=== PATIENT | female | born 1940 | race Asian ===

== ENCOUNTER 2016-03-10 16:39 | Outpatient (CLI) | payer OTHER ==
[~2016-03-10 16:39] MED LIST: ALBU90AE13 INH; BUDE1AER5 INH; FOLI1TAB26 PO; OMEGA 31000 MG PO; OYSTER-CAL500 MG PO; PROAIR HFA INH; XOPENEX1.25 MG/3 INH; ZANTAC 75 PO
[2016-03-10 16:56] LABS: PLATELET COUNT 340 K/uL (152-353)
[2016-03-10 17:11] LABS: POTASSIUM 3.9 mmol/L (3.6-5.2)
== END 2016-03-10 20:15 | disposition home or self-care (01) ==
LOC: LABW 16:39
PROVIDERS: Internal Medicine
DX: I12.9 Hypertensive chronic kidney disease with stage 1 through stage 4 chronic kidney disease, or unspecified chronic kidney disease (principal); N18.9 Chronic kidney disease, unspecified
CPT/HCPCS: 36415; 80048; 82040; 83883; 84100; 84550; 85027; 86039

== ENCOUNTER 2016-03-16 16:25 | Outpatient (CLI) | payer OTHER ==
[2016-03-16 17:00] LABS: PLATELET COUNT 208 K/uL (152-353)
[2016-03-16 17:12] LABS: POTASSIUM 4.3 mmol/L (3.6-5.2)
== END 2016-03-16 19:26 | disposition home or self-care (01) ==
LOC: LABW 16:25
PROVIDERS: Internal Medicine Medical Oncology
DX: D58.2 Other hemoglobinopathies (principal); D64.9 Anemia, unspecified
CPT/HCPCS: 36415; 80053; 82728; 83540; 83550; 85027

== ENCOUNTER 2016-06-09 14:03 | Outpatient (CLI) | payer OTHER ==
[2016-06-10 08:05] LABS: POTASSIUM 3.9 mmol/L (3.6-5.2)
[2016-06-10 08:36] LABS: PLATELET COUNT 311 K/uL (152-353)
== END 2016-06-09 18:00 | disposition home or self-care (01) ==
LOC: LABW 14:03
PROVIDERS: Internal Medicine
DX: I10 Essential (primary) hypertension (principal); N39.0 Urinary tract infection, site not specified
CPT/HCPCS: 36415; 80061; 80069; 81000; 85027; 87088

== ENCOUNTER 2016-06-09 15:34 | Outpatient (CLI) | payer OTHER | END 2016-06-09 16:34 | disposition home or self-care (01) | LOC: RAD 15:34 | DX: M54.2 Cervicalgia (principal) ==

== ENCOUNTER 2016-06-10 07:34 | Outpatient (CLI) | payer OTHER | END 2016-06-10 08:34 | disposition home or self-care (01) | LOC: LAB 07:34 | DX: I10 Essential (primary) hypertension (principal); N39.0 Urinary tract infection, site not specified ==

== ENCOUNTER 2016-07-28 07:54 | Outpatient (CLI) | payer OTHER | END 2016-07-28 09:00 | disposition home or self-care (01) | LOC: MAMMO 07:54 | DX: Z12.31 Encounter for screening mammogram for malignant neoplasm of breast (principal); M81.8 Other osteoporosis without current pathological fracture | CPT/HCPCS: G0202-TC ==

== ENCOUNTER 2016-09-15 08:10 | Outpatient (CLI) | payer OTHER ==
[2016-09-15 08:50] LABS: PLATELET COUNT 340 K/uL (152-353)
[2016-09-15 10:12] LABS: POTASSIUM 3.8 mmol/L (3.6-5.2)
== END 2016-09-15 19:08 | disposition home or self-care (01) ==
LOC: LABW 08:10
PROVIDERS: Internal Medicine Medical Oncology
DX: C55 Malignant neoplasm of uterus, part unspecified (principal); D64.89 Other specified anemias
CPT/HCPCS: 36415; 80053; 82728; 83540; 83550; 85027

== ENCOUNTER 2016-09-23 08:14 | Outpatient (CLI) | payer OTHER ==
[2016-09-23 08:42] LABS: PLATELET COUNT 346 K/uL (152-353)
[2016-09-23 08:46] LABS: POTASSIUM 4.2 mmol/L (3.6-5.2)
== END 2016-09-23 19:10 | disposition home or self-care (01) ==
LOC: LABW 08:14
PROVIDERS: Internal Medicine
DX: I10 Essential (primary) hypertension (principal); E78.4 Other hyperlipidemia
CPT/HCPCS: 36415; 80061; 80069; 85027

== ENCOUNTER 2016-12-07 08:23 | Outpatient (CLI) | payer OTHER ==
[2016-12-07 09:06] LABS: PLATELET COUNT 297 K/uL (152-353)
== END 2016-12-07 09:25 | disposition home or self-care (01) ==
LOC: LABW 08:23
PROVIDERS: Internal Medicine Medical Oncology
DX: D58.2 Other hemoglobinopathies (principal); E78.5 Hyperlipidemia, unspecified; N18.9 Chronic kidney disease, unspecified
CPT/HCPCS: 36415; 80053; 82728; 83540; 83550; 85027

== ENCOUNTER 2016-12-22 08:13 | Outpatient (CLI) | payer OTHER ==
[2016-12-22 08:59] LABS: PLATELET COUNT 228 K/uL (152-353)
[2016-12-22 09:00] LABS: POTASSIUM 4.1 mmol/L (3.6-5.2)
== END 2016-12-22 09:15 | disposition home or self-care (01) ==
LOC: LABW 08:13
PROVIDERS: Internal Medicine
DX: I12.9 Hypertensive chronic kidney disease with stage 1 through stage 4 chronic kidney disease, or unspecified chronic kidney disease (principal); N18.3 Chronic kidney disease, stage 3 (moderate)
CPT/HCPCS: 36415; 80048; 80061; 82040; 84100; 84550; 85027

== ENCOUNTER 2017-04-05 08:10 | Outpatient (CLI) | payer OTHER ==
[2017-04-05 08:41] LABS: PLATELET COUNT 346 K/uL (152-353)
[2017-04-05 09:04] LABS: POTASSIUM 3.9 mmol/L (3.6-5.2)
== END 2017-04-05 21:08 | disposition home or self-care (01) ==
LOC: LABW 08:10
PROVIDERS: Internal Medicine
DX: I12.9 Hypertensive chronic kidney disease with stage 1 through stage 4 chronic kidney disease, or unspecified chronic kidney disease (principal); N18.3 Chronic kidney disease, stage 3 (moderate)
CPT/HCPCS: 36415; 80048; 80061; 82040; 84100; 84550; 85027

== ENCOUNTER 2017-06-15 08:33 | Outpatient (CLI) | payer OTHER ==
[2017-06-15 09:36] LABS: PLATELET COUNT 280 K/uL (152-353)
== END 2017-06-15 21:55 | disposition home or self-care (01) ==
LOC: LABW 08:33
PROVIDERS: Internal Medicine Medical Oncology
DX: D58.2 Other hemoglobinopathies (principal); D64.9 Anemia, unspecified
CPT/HCPCS: 36415; 80053; 82728; 83540; 83550; 85027

== ENCOUNTER 2017-07-22 14:48 | Outpatient (CLI) | payer OTHER | END 2017-07-22 23:38 | disposition home or self-care (01) | LOC: RAD 14:48 | DX: R76.11 Nonspecific reaction to tuberculin skin test without active tuberculosis (principal) ==

== ENCOUNTER 2017-07-30 08:06 | Outpatient (CLI) | payer OTHER | END 2017-07-30 19:22 | disposition home or self-care (01) | LOC: MAMMO 08:06 | DX: Z12.31 Encounter for screening mammogram for malignant neoplasm of breast (principal) ==

== ENCOUNTER 2017-08-03 08:18 | Outpatient (CLI) | payer OTHER ==
[2017-08-03 08:37] LABS: PLATELET COUNT 307 K/uL (152-353)
== END 2017-08-03 19:38 | disposition home or self-care (01) ==
LOC: LABW 08:18
PROVIDERS: Internal Medicine
DX: I12.9 Hypertensive chronic kidney disease with stage 1 through stage 4 chronic kidney disease, or unspecified chronic kidney disease (principal); N18.3 Chronic kidney disease, stage 3 (moderate)
CPT/HCPCS: 36415; 80048; 80061; 82040; 84100; 84550; 85027

== ENCOUNTER 2017-10-05 08:56 | Outpatient (CLI) | payer OTHER ==
[2017-10-05 09:26] LABS: PLATELET COUNT 288 K/uL (152-353)
[2017-10-05 09:46] LABS: POTASSIUM 3.9 mmol/L (3.6-5.2)
== END 2017-10-05 23:39 | disposition home or self-care (01) ==
LOC: EDSTATUS 08:56 → LABW 08:56
PROVIDERS: Nurse Practitioner Family
DX: R10.12 Left upper quadrant pain (principal); I10 Essential (primary) hypertension
CPT/HCPCS: 36415; 80053; 80061; 85027

== ENCOUNTER 2017-10-05 09:55 | Outpatient (CLI) | payer OTHER | END 2017-10-05 23:40 | disposition home or self-care (01) | LOC: US 09:55 | DX: R52 Pain, unspecified (principal); R10.12 Left upper quadrant pain ==

== ENCOUNTER 2017-12-06 08:18 | Outpatient (CLI) | payer OTHER ==
[2017-12-06 08:38] LABS: PLATELET COUNT 301 K/uL (152-353)
[2017-12-06 09:11] LABS: POTASSIUM 4.3 mmol/L (3.6-5.2)
== END 2017-12-06 19:51 | disposition home or self-care (01) ==
LOC: LABW 08:18
PROVIDERS: Internal Medicine
DX: N18.3 Chronic kidney disease, stage 3 (moderate) (principal); I10 Essential (primary) hypertension
CPT/HCPCS: 36415; 80048; 80061; 82040; 82570; 84100; 84155; 84550; 85027

== ENCOUNTER 2017-12-20 07:54 | Outpatient (CLI) | payer OTHER ==
[2017-12-20 08:10] LABS: PLATELET COUNT 266 K/uL (152-353)
[2017-12-20 08:59] LABS: POTASSIUM 4.5 mmol/L (3.6-5.2)
== END 2017-12-20 19:13 | disposition home or self-care (01) ==
LOC: LABW 07:54
PROVIDERS: Nurse Practitioner Family
DX: D58.2 Other hemoglobinopathies (principal); D64.9 Anemia, unspecified
CPT/HCPCS: 36415; 80053; 82728; 83540; 83550; 85027

== ENCOUNTER 2018-04-26 08:10 | Outpatient (CLI) | payer OTHER ==
[2018-04-26 08:36] LABS: PLATELET COUNT 216 K/uL (152-353)
[2018-04-26 08:44] LABS: POTASSIUM 3.8 mmol/L (3.6-5.2)
== END 2018-04-26 23:10 | disposition home or self-care (01) ==
LOC: LABW 08:10
PROVIDERS: Internal Medicine
DX: N18.3 Chronic kidney disease, stage 3 (moderate) (principal); I10 Essential (primary) hypertension
CPT/HCPCS: 36415; 80048; 80061; 84100; 84550; 85007; 85027

== ENCOUNTER 2018-05-09 14:41 | Outpatient (CLI) | payer OTHER | END 2018-05-09 22:15 | disposition home or self-care (01) | LOC: RAD 14:41 | DX: M25.519 Pain in unspecified shoulder (principal); M54.2 Cervicalgia; M25.511 Pain in right shoulder ==

== ENCOUNTER 2018-06-13 08:13 | Outpatient (CLI) | payer OTHER ==
[2018-06-13 09:20] LABS: PLATELET COUNT 314 K/uL (152-353)
[2018-06-13 09:39] LABS: POTASSIUM 4.2 mmol/L (3.6-5.2)
== END 2018-06-13 22:55 | disposition home or self-care (01) ==
LOC: LABW 08:13
PROVIDERS: Internal Medicine Medical Oncology
DX: D58.2 Other hemoglobinopathies (principal); D64.9 Anemia, unspecified
CPT/HCPCS: 36415; 80053; 82728; 83540; 83550; 85027

== ENCOUNTER 2018-08-04 08:04 | Outpatient (CLI) | payer OTHER | END 2018-08-04 19:14 | disposition home or self-care (01) | LOC: MAMMO 08:04 | DX: Z12.31 Encounter for screening mammogram for malignant neoplasm of breast (principal) ==

== ENCOUNTER 2018-08-17 07:59 | Outpatient (CLI) | payer OTHER ==
[2018-08-17 08:26] LABS: PLATELET COUNT 312 K/uL (152-353)
[2018-08-17 08:44] LABS: POTASSIUM 4.5 mmol/L (3.6-5.2)
== END 2018-08-17 23:39 | disposition home or self-care (01) ==
LOC: LABW 07:59
PROVIDERS: Internal Medicine
DX: I12.9 Hypertensive chronic kidney disease with stage 1 through stage 4 chronic kidney disease, or unspecified chronic kidney disease (principal); N18.3 Chronic kidney disease, stage 3 (moderate); R82.998 Other abnormal findings in urine
CPT/HCPCS: 36415; 80061; 80069; 81000; 85027; 87086; 87088

== ENCOUNTER 2018-08-25 12:51 | Outpatient (CLI) | payer OTHER | END 2018-08-25 23:07 | disposition home or self-care (01) | LOC: MRI 12:51 | DX: M54.12 Radiculopathy, cervical region (principal) ==

== ENCOUNTER 2018-12-14 08:08 | Outpatient (CLI) | payer OTHER ==
[2018-12-14 08:33] LABS: PLATELET COUNT 272 K/uL (152-353)
[2018-12-14 08:41] LABS: POTASSIUM 4.3 mmol/L (3.6-5.2)
== END 2018-12-14 22:53 | disposition home or self-care (01) ==
LOC: LABW 08:08
PROVIDERS: Internal Medicine
DX: I12.9 Hypertensive chronic kidney disease with stage 1 through stage 4 chronic kidney disease, or unspecified chronic kidney disease (principal); N18.3 Chronic kidney disease, stage 3 (moderate)
CPT/HCPCS: 36415; 80048; 82040; 84100; 84550; 85027

== ENCOUNTER 2019-01-27 08:29 | Outpatient (CLI) | payer OTHER ==
[2019-01-27 10:26] LABS: PLATELET COUNT 310 K/uL (152-353)
== END 2019-01-27 19:23 | disposition home or self-care (01) ==
LOC: LABW 08:29
PROVIDERS: Internal Medicine Medical Oncology
DX: D50.8 Other iron deficiency anemias (principal); D58.2 Other hemoglobinopathies
CPT/HCPCS: 36415; 80053; 82728; 83540; 83550; 85027

== ENCOUNTER 2019-03-16 08:20 | Outpatient (CLI) | payer OTHER ==
[2019-03-16 09:17] LABS: POTASSIUM 4.1 mmol/L (3.6-5.2)
[2019-03-16 10:10] LABS: PLATELET COUNT 253 K/uL (152-353)
== END 2019-03-16 22:26 | disposition home or self-care (01) ==
LOC: LABW 08:20
PROVIDERS: Internal Medicine
DX: I12.9 Hypertensive chronic kidney disease with stage 1 through stage 4 chronic kidney disease, or unspecified chronic kidney disease (principal); N18.3 Chronic kidney disease, stage 3 (moderate)
CPT/HCPCS: 80061; 80069; 84550; 85027

== ENCOUNTER 2019-04-20 07:51 | Outpatient (CLI) | payer OTHER | END 2019-04-20 19:42 | disposition home or self-care (01) | LOC: RESP 07:51 | DX: R06.02 Shortness of breath (principal); R94.31 Abnormal electrocardiogram [ECG] [EKG]; Z73.6 Limitation of activities due to disability | CPT/HCPCS: 93306 ==

== ENCOUNTER 2019-04-25 09:12 | Outpatient (CLI) | payer OTHER ==
[~2019-04-25] VITALS: Ht 175.3 cm; Wt 65.3 kg
== END 2019-04-25 21:57 | disposition home or self-care (01) ==
LOC: NM 09:12
DX: R06.02 Shortness of breath (principal); R94.31 Abnormal electrocardiogram [ECG] [EKG]; R68.89 Other general symptoms and signs
CPT/HCPCS: A9500; J2785

== ENCOUNTER 2019-06-12 08:29 | Outpatient (CLI) | payer OTHER ==
[2019-06-12 08:57] LABS: PLATELET COUNT 317 K/uL (152-353)
[2019-06-12 09:23] LABS: POTASSIUM 3.6 mmol/L (3.6-5.2)
== END 2019-06-12 19:14 | disposition home or self-care (01) ==
LOC: LABW 08:29
PROVIDERS: Internal Medicine
DX: I12.9 Hypertensive chronic kidney disease with stage 1 through stage 4 chronic kidney disease, or unspecified chronic kidney disease (principal); N18.3 Chronic kidney disease, stage 3 (moderate)
CPT/HCPCS: 36415; 80061; 80069; 85027

== ENCOUNTER 2019-08-07 12:46 | Outpatient (CLI) | payer OTHER | END 2019-08-07 19:55 | disposition home or self-care (01) | LOC: MAMMO 12:46 | DX: M81.0 Age-related osteoporosis without current pathological fracture (principal); Z12.31 Encounter for screening mammogram for malignant neoplasm of breast ==

== ENCOUNTER 2019-09-13 08:01 | Outpatient (CLI) | payer OTHER ==
[2019-09-13 09:07] LABS: POTASSIUM 4.1 mmol/L (3.6-5.2)
[2019-09-13 09:56] LABS: PLATELET COUNT 317 K/uL (152-353)
== END 2019-09-13 21:29 | disposition home or self-care (01) ==
LOC: LABW 08:01
PROVIDERS: Internal Medicine
DX: I12.9 Hypertensive chronic kidney disease with stage 1 through stage 4 chronic kidney disease, or unspecified chronic kidney disease (principal); N18.3 Chronic kidney disease, stage 3 (moderate)
CPT/HCPCS: 36415; 80048; 80061; 82040; 84100; 84550; 85027

== ENCOUNTER 2019-10-30 08:21 | Outpatient (CLI) | payer OTHER ==
[2019-10-30 08:53] LABS: POTASSIUM 3.5 mmol/L (3.6-5.2)
== END 2019-10-30 19:07 | disposition home or self-care (01) ==
LOC: EDBD 08:21 → LABW 08:21
PROVIDERS: Internal Medicine
DX: N18.3 Chronic kidney disease, stage 3 (moderate) (principal); N17.9 Acute kidney failure, unspecified
CPT/HCPCS: 36415; 80048; 82040; 84100; 84550

== ENCOUNTER 2019-11-06 07:59 | Outpatient (CLI) | payer OTHER ==
[2019-11-06 08:23] LABS: PLATELET COUNT 327 K/uL (152-353)
[2019-11-06 09:19] LABS: POTASSIUM 3.9 mmol/L (3.6-5.2)
== END 2019-11-06 22:55 | disposition home or self-care (01) ==
LOC: LABW 07:59
PROVIDERS: Internal Medicine Medical Oncology
DX: D58.2 Other hemoglobinopathies (principal); D50.8 Other iron deficiency anemias
CPT/HCPCS: 36415; 80053; 82728; 83540; 83550; 85027

== ENCOUNTER 2020-01-01 07:56 | Outpatient (CLI) | payer OTHER ==
[2020-01-01 10:29] LABS: PLATELET COUNT 275 K/uL (152-353)
== END 2020-01-01 20:24 | disposition home or self-care (01) ==
LOC: LABW 07:56
PROVIDERS: Internal Medicine
DX: I12.9 Hypertensive chronic kidney disease with stage 1 through stage 4 chronic kidney disease, or unspecified chronic kidney disease (principal); N18.30 Chronic kidney disease, stage 3 unspecified
CPT/HCPCS: 36415; 80048; 80061; 82040; 84100; 84550; 85027

== ENCOUNTER 2020-04-08 07:55 | Outpatient (CLI) | payer OTHER ==
[2020-04-08 08:23] LABS: POTASSIUM 4.2 mmol/L (3.6-5.2)
== END 2020-04-08 19:14 | disposition home or self-care (01) ==
LOC: LABW 07:55
PROVIDERS: ATTEND Internal Medicine
DX: I12.9 Hypertensive chronic kidney disease with stage 1 through stage 4 chronic kidney disease, or unspecified chronic kidney disease (principal); N18.30 Chronic kidney disease, stage 3 unspecified
CPT/HCPCS: 36415; 80061; 80069

== ENCOUNTER 2020-04-10 08:10 | Outpatient (CLI) | payer OTHER ==
[2020-04-10 08:49] LABS: PLATELET COUNT 340 K/uL (152-353)
== END 2020-04-10 21:36 | disposition home or self-care (01) ==
LOC: LAB 08:10
PROVIDERS: ATTEND Internal Medicine
DX: I12.9 Hypertensive chronic kidney disease with stage 1 through stage 4 chronic kidney disease, or unspecified chronic kidney disease (principal); N18.30 Chronic kidney disease, stage 3 unspecified
CPT/HCPCS: 36415; 84550; 85027

== ENCOUNTER 2020-07-08 08:16 | Outpatient (CLI) | payer OTHER ==
[2020-07-08 08:42] LABS: PLATELET COUNT 315 K/uL (152-353)
[2020-07-08 09:22] LABS: POTASSIUM 4.4 mmol/L (3.6-5.2)
== END 2020-07-08 19:13 | disposition home or self-care (01) ==
LOC: LABW 08:16
PROVIDERS: ATTEND Internal Medicine
DX: I12.9 Hypertensive chronic kidney disease with stage 1 through stage 4 chronic kidney disease, or unspecified chronic kidney disease (principal); N18.30 Chronic kidney disease, stage 3 unspecified
CPT/HCPCS: 36415; 80048; 80061; 82040; 84100; 84550; 85027

== ENCOUNTER 2020-08-08 12:41 | Outpatient (CLI) | payer OTHER | END 2020-08-08 23:50 | disposition home or self-care (01) | LOC: MAMMO 12:41 → RAD 13:30 → MAMMO 23:50 | PROVIDERS: ATTEND Obstetrics & Gynecology | DX: M81.0 Age-related osteoporosis without current pathological fracture (principal); Z12.31 Encounter for screening mammogram for malignant neoplasm of breast ==

== ENCOUNTER 2020-10-02 08:08 | Outpatient (CLI) | payer OTHER | END 2020-10-02 23:26 | disposition home or self-care (01) | LOC: MAMMO 08:08 | PROVIDERS: ATTEND Obstetrics & Gynecology | DX: R92.2 Inconclusive mammogram (principal) ==

== ENCOUNTER 2020-10-14 07:48 | Outpatient (CLI) | payer OTHER ==
[2020-10-14 08:09] LABS: PLATELET COUNT 282 K/uL (152-353)
[2020-10-14 08:29] LABS: POTASSIUM 3.8 mmol/L (3.6-5.2)
== END 2020-10-14 21:41 | disposition home or self-care (01) ==
LOC: LABW 07:48
PROVIDERS: ATTEND Internal Medicine
DX: I12.9 Hypertensive chronic kidney disease with stage 1 through stage 4 chronic kidney disease, or unspecified chronic kidney disease (principal); N18.30 Chronic kidney disease, stage 3 unspecified
CPT/HCPCS: 36415; 80048; 80061; 82040; 84100; 84550; 85027

== ENCOUNTER 2020-11-01 12:30 | Outpatient (CLI) | payer OTHER | END 2020-11-01 22:02 | disposition home or self-care (01) | LOC: RESP 12:30 | PROVIDERS: ATTEND Specialist | DX: I10 Essential (primary) hypertension (principal); I35.1 Nonrheumatic aortic (valve) insufficiency; I34.0 Nonrheumatic mitral (valve) insufficiency; I36.1 Nonrheumatic tricuspid (valve) insufficiency ==

== ENCOUNTER 2020-11-04 08:13 | Outpatient (CLI) | payer OTHER ==
[2020-11-04 08:37] LABS: PLATELET COUNT 306 K/uL (152-353)
[2020-11-04 09:17] LABS: POTASSIUM 4.4 mmol/L (3.6-5.2)
== END 2020-11-04 19:20 | disposition home or self-care (01) ==
LOC: LABW 08:13
PROVIDERS: ATTEND Nurse Practitioner Adult Health
DX: D58.2 Other hemoglobinopathies (principal); D50.8 Other iron deficiency anemias
CPT/HCPCS: 36415; 80053; 82728; 83540; 83550; 85027

== ENCOUNTER 2021-01-06 08:15 | Outpatient (CLI) | payer OTHER ==
[2021-01-06 08:53] LABS: PLATELET COUNT 287 K/uL (152-353)
[2021-01-06 09:09] LABS: POTASSIUM 3.9 mmol/L (3.6-5.2)
== END 2021-01-06 19:20 | disposition home or self-care (01) ==
LOC: LABW 08:15
PROVIDERS: ATTEND Internal Medicine
DX: I12.9 Hypertensive chronic kidney disease with stage 1 through stage 4 chronic kidney disease, or unspecified chronic kidney disease (principal); N18.30 Chronic kidney disease, stage 3 unspecified; R82.998 Other abnormal findings in urine
CPT/HCPCS: 36415; 80048; 80061; 81000; 82040; 84100; 84550; 85027; 87077; 87086; 87088; 87186

== ENCOUNTER 2021-07-07 07:51 | Outpatient (CLI) | payer OTHER ==
[2021-07-07 08:36] LABS: PLATELET COUNT 295 K/uL (152-353)
[2021-07-07 08:51] LABS: POTASSIUM 4.4 mmol/L (3.6-5.2)
== END 2021-07-07 18:53 | disposition home or self-care (01) ==
LOC: LABW 07:51
PROVIDERS: ATTEND Internal Medicine
DX: I12.9 Hypertensive chronic kidney disease with stage 1 through stage 4 chronic kidney disease, or unspecified chronic kidney disease (principal); N18.30 Chronic kidney disease, stage 3 unspecified
CPT/HCPCS: 36415; 80048; 80061; 82040; 84100; 84550; 85027

== ENCOUNTER 2021-08-11 05:39 | Emergency (ER) | payer OTHER ==
[~2021-08-11] VITALS: Ht 175.3 cm; Wt 67.6 kg
[2021-08-11 06:11] LABS: PLATELET COUNT 275 K/uL (152-353)
[2021-08-11 06:43] LABS: POTASSIUM 3.8 mmol/L (3.6-5.2); SODIUM 141 mmol/L (136-145)
[2021-08-11 06:58] LABS: PARTIAL THROMBOPLASTIN TIME 29.2 SECONDS (24.5-33.6)
[2021-08-11 07:54] VITALS: BP 152/79; TEMP 97.6
== END 2021-08-11 07:57 | disposition home or self-care (01) ==
LOC: ED 05:39
PROVIDERS: Hospitalist
DX: R42 Dizziness and giddiness (principal); Z79.899 Other long term (current) drug therapy; Z51.81 Encounter for therapeutic drug level monitoring
CPT/HCPCS: 80053; 80320; 82550; 83880; 84484; 85027; 85610; 85730; 93005; 96360; 96374; 99284; J2405

== ENCOUNTER 2021-09-29 09:30 | Emergency (ER) | payer OTHER ==
[~2021-09-29] VITALS: Ht 175.3 cm; Wt 67.6 kg
[2021-09-29 09:35] VITALS: TEMP 98
[2021-09-29 11:10] LABS: PLATELET COUNT 256 K/uL (152-353)
[2021-09-29 11:18] LABS: POTASSIUM 3.7 mmol/L (3.6-5.2)
[2021-09-29 13:30] VITALS: BP 118/66
[2021-09-29] MEDS ORDERED: NITR100C56 PO (14:15)
== END 2021-09-29 14:32 | disposition home or self-care (01) ==
LOC: ED 09:30
PROVIDERS: Emergency Medicine Emergency Medical Services
DX: N39.0 Urinary tract infection, site not specified (principal); I50.9 Heart failure, unspecified
CPT/HCPCS: 80053; 81002; 81015; 83735; 83880; 84484; 85027; 87086; 87088; 93005; 96360; 96365; 99284; J0696

== ENCOUNTER 2021-10-06 07:41 | Outpatient (CLI) | payer OTHER ==
[~2021-10-06 07:41] MED LIST changes: +NITR100C56 PO
[2021-10-06 08:23] LABS: PLATELET COUNT 377 K/uL (152-353)
[2021-10-06 08:35] LABS: POTASSIUM 3.8 mmol/L (3.6-5.2)
== END 2021-10-06 18:54 | disposition home or self-care (01) ==
LOC: MAMMO 07:41 → LABW 07:41 → MAMMO 09:00
PROVIDERS: ATTEND Obstetrics & Gynecology
DX: Z12.31 Encounter for screening mammogram for malignant neoplasm of breast (principal); N18.30 Chronic kidney disease, stage 3 unspecified; I12.9 Hypertensive chronic kidney disease with stage 1 through stage 4 chronic kidney disease, or unspecified chronic kidney disease
CPT/HCPCS: 36415; 80048; 82040; 84100; 84550; 85027

== ENCOUNTER 2021-11-07 13:47 | Outpatient (CLI) | payer OTHER ==
[2021-11-07 14:18] LABS: POTASSIUM 3.5 mmol/L (3.6-5.2)
[2021-11-07 14:21] LABS: PLATELET COUNT 292 K/uL (152-353)
== END 2021-11-07 21:51 | disposition home or self-care (01) ==
LOC: LABW 13:47
PROVIDERS: ATTEND Internal Medicine Medical Oncology
DX: D58.2 Other hemoglobinopathies (principal); D50.8 Other iron deficiency anemias
CPT/HCPCS: 36415; 80053; 85027

== ENCOUNTER 2021-12-30 12:58 | Outpatient (CLI) | payer OTHER | END 2021-12-30 18:58 | disposition home or self-care (01) | LOC: RESP 12:58 | PROVIDERS: ATTEND Nurse Practitioner Family | DX: J45.30 Mild persistent asthma, uncomplicated (principal) ==

== ENCOUNTER 2022-02-02 07:52 | Outpatient (CLI) | payer OTHER ==
[2022-02-02 08:29] LABS: PLATELET COUNT 306 K/uL (152-353)
[2022-02-02 08:46] LABS: POTASSIUM 3.9 mmol/L (3.6-5.2)
== END 2022-02-02 19:34 | disposition home or self-care (01) ==
LOC: LABW 07:52
PROVIDERS: ATTEND Internal Medicine
DX: I12.9 Hypertensive chronic kidney disease with stage 1 through stage 4 chronic kidney disease, or unspecified chronic kidney disease (principal); N18.32 Chronic kidney disease, stage 3b; N39.0 Urinary tract infection, site not specified
CPT/HCPCS: 36415; 80061; 80069; 81000; 85027; 87086; 87088

== ENCOUNTER 2022-05-04 07:51 | Outpatient (CLI) | payer OTHER ==
[2022-05-04 08:09] LABS: PLATELET COUNT 294 K/uL (152-353)
== END 2022-05-04 18:54 | disposition home or self-care (01) ==
LOC: LABW 07:51
PROVIDERS: ATTEND Internal Medicine
DX: I12.9 Hypertensive chronic kidney disease with stage 1 through stage 4 chronic kidney disease, or unspecified chronic kidney disease (principal); N18.32 Chronic kidney disease, stage 3b; R82.998 Other abnormal findings in urine
CPT/HCPCS: 36415; 80069; 81000; 85027; 87086; 87088

== ENCOUNTER 2022-05-11 07:51 | Outpatient (CLI) | payer OTHER ==
[2022-05-11 08:04] LABS: PLATELET COUNT 275 K/uL (152-353)
== END 2022-05-11 19:41 | disposition home or self-care (01) ==
LOC: LABW 07:51
PROVIDERS: ATTEND Internal Medicine Hematology & Oncology
DX: D58.2 Other hemoglobinopathies (principal); D50.8 Other iron deficiency anemias
CPT/HCPCS: 36415; 80053; 82728; 83540; 83550; 85027

== ENCOUNTER 2022-06-18 13:41 | Outpatient (CLI) | payer OTHER | END 2022-06-18 20:51 | disposition home or self-care (01) | LOC: RAD 13:41 | PROVIDERS: ATTEND Nurse Practitioner Family | DX: R06.2 Wheezing (principal); J44.9 Chronic obstructive pulmonary disease, unspecified ==

== ENCOUNTER 2022-07-08 15:42 | Outpatient (CLI) | payer OTHER | END 2022-07-08 19:15 | disposition home or self-care (01) | LOC: RAD 15:42 | PROVIDERS: ATTEND Nurse Practitioner Family | DX: M79.672 Pain in left foot (principal) ==

== ENCOUNTER 2022-12-22 13:19 | Outpatient (CLI) | payer OTHER | END 2022-12-22 19:07 | disposition home or self-care (01) | LOC: MAMMO 13:19 | PROVIDERS: ATTEND Obstetrics & Gynecology | DX: Z12.31 Encounter for screening mammogram for malignant neoplasm of breast (principal); M81.0 Age-related osteoporosis without current pathological fracture ==

== ENCOUNTER 2023-04-05 07:56 | Outpatient (CLI) | payer OTHER ==
[2023-04-05 08:23] LABS: PLATELET COUNT 337 K/uL (152-353)
[2023-04-05 08:44] LABS: POTASSIUM 4.1 mmol/L (3.6-5.2)
== END 2023-04-05 19:34 | disposition home or self-care (01) ==
LOC: LABW 07:56
PROVIDERS: ATTEND Internal Medicine
DX: I12.9 Hypertensive chronic kidney disease with stage 1 through stage 4 chronic kidney disease, or unspecified chronic kidney disease (principal); N18.31 Chronic kidney disease, stage 3a
CPT/HCPCS: 36415; 80048; 82040; 84100; 84550; 85027